=== PATIENT | male | born 1955 | race American Indian/Alaskan Native ===

== ENCOUNTER 2020-09-22 13:25 | Emergency (ER) | payer SELFPAY ==
--- NOTE | 2020-09-22 14:48 | XRay Report ---
CHEST 2 VIEWS INDICATION / CLINICAL INFORMATION: Chest Pain. COMPARISON: None available. FINDINGS: SUPPORT DEVICES: None. HEART / MEDIASTINUM: No significant abnormality. LUNGS / PLEURA: No significant pulmonary or pleural abnormality. No pneumothorax. ADDITIONAL FINDINGS: No significant additional findings. IMPRESSION: No acute cardiopulmonary abnormality. Signer Name: Vipul Gregorio MD Signed: 09/22/2020 2:44 PM Workstation Name: [id number]
[2020-09-22 15:26] LABS: Basophils % (Auto) 0.4 % (0.0-1.8); Eosinophils % (Auto) 0.3 % (0.0-4.3); Hematocrit 44.5 % (35.5-45.6); Lymphocytes # (Auto) 1.2 K/mm3 (1.2-5.4); Lymphocytes % (Auto) 18.1 % (13.4-35.0); Mean Corpuscular HGB Conc 34 % (32-34); Mean Corpuscular Volume 92 fl (84-94); Monocytes # (Auto) 0.5 K/mm3 (0.0-0.8); Monocytes % (Auto) 8.2 % (0.0-7.3); Platelet Count 261 K/mm3 (140-440); Red Blood Count 4.85 M/mm3 (3.65-5.03); Red Cell Distribution Width 13.2 % (13.2-15.2)
[2020-09-22 15:48] LABS: Alanine Aminotransferase 11 units/L (7-56); BUN/Creatinine Ratio 16; Blood Urea Nitrogen 14 mg/dL (9-20); Calcium 9.2 mg/dL (8.4-10.2); Hemolysis Index 26
--- NOTE | 2020-09-22 16:42 | Emergency Department Report ---
HPI - General Chief Complaint: Chest Pain Time Seen by Provider: 09/22/20 16:28 - HPI HPI: Room 44 The patient is a 65-year-old male present with a chief complaint of chest pain. The patient states he was getting up to go to the bathroom developed with left- sided chest pain associated with slight diaphoresis. Patient denies shortness of breath or nausea/vomiting. The patient states the pain was severe enough to cause him to fall to the floor but he denies loss of consciousness. Patient states the pain lasted for approximately 1 hour. Patient states he is never had a stress test or cardiac catheterization ED Past Medical Hx - Past Medical History Previous Medical History?: No - Surgical History Past Surgical History?: No - Family History Family history: no significant - Social History Smoking Status: Light Tobacco Smoker (Chews tobacco) Substance Use Type: None ED Review of Systems ROS: Stated complaint: POSS HEART ATTACK Other details as noted in HPI Constitutional: diaphoresis Eyes: denies: eye pain ENT: denies: throat pain Respiratory: denies: shortness of breath Cardiovascular: chest pain Endocrine: no symptoms reported Gastrointestinal: denies: nausea, vomiting Genitourinary: denies: dysuria Musculoskeletal: denies: back pain Neurological: denies: headache Physical Exam - Physical Exam Vital Signs: Vital Signs 09/22/20 14:38 Temperature 98 F Pulse Rate 86 Respiratory 16 Rate Blood Pressure 128/76 [Right] O2 Sat by Pulse 97 Oximetry Physical Exam: GENERAL: The patient is well-developed well-nourished male sitting on stretcher not appearing to be in acute distress. [] HEENT: Normocephalic. Atraumatic. Extraocular motions are intact. Patient has moist mucous membranes. NECK: Supple. Trachea midline CHEST/LUNGS: Clear to auscultation. There is no respiratory distress noted. HEART/CARDIOVASCULAR: Regular. There is no tachycardia. There is no gallop rub or murmur. ABDOMEN: Abdomen is soft, nontender. Patient has normal bowel sounds. There is no abdominal distention. SKIN: There is no rash. There is no edema. There is no diaphoresis. NEURO: The patient is awake, alert, and oriented. The patient is cooperative. The patient has normal speech MUSCULOSKELETAL: There is no evidence of acute injury. ED Course Vital Signs 09/22/20 14:38 Temperature 98 F Pulse Rate 86 Respiratory 16 Rate Blood Pressure 128/76 [Right] O2 Sat by Pulse 97 Oximetry ED Medical Decision Making - Lab Data Result diagrams: 09/22/20 15:05 09/22/20 15:05 - EKG Data -: EKG Interpreted by Me EKG shows normal: sinus rhythm Rate: normal - EKG Data When compared to previous EKG there are: previous EKG unavailable Interpretation: nonspecific ST-T wave aislinn (T wave inversions inferiorly) - Radiology Data Radiology results: report reviewed (Chest x-ray), image reviewed (Chest x-ray) interpreted by me: Chest x-ray-no focal infiltrates, no pneumothorax, no foreign body seen CHEST 2 VIEWS INDICATION / CLINICAL INFORMATION: Chest Pain. COMPARISON: None available. FINDINGS: SUPPORT DEVICES: None. HEART / MEDIASTINUM: No significant abnormality. LUNGS / PLEURA: No significant pulmonary or pleural abnormality. No pneumothorax. ADDITIONAL FINDINGS: No significant additional findings. IMPRESSION: No acute cardiopulmonary abnormality. Signer Name: Vipul Gregorio MD Signed: 09/22/2020 1:44 PM Workstation Name: [id number] - Differential Diagnosis ACS, pericarditis, GERD Critical care attestation.: If time is entered above; I have spent that time in minutes in the direct care of this critically ill patient, excluding procedure time. ED Disposition Clinical Impression: Chest pain Disposition: -09 OP ADMIT IP TO THIS HOSP Is pt being admited?: Yes Does the pt Need Aspirin: Yes Condition: Fair Instructions: Chest Pain (ED) Time of Disposition: 16:46 (Hospitalist paged (Dr. Fuller)) HEART Score - HEART Score History: Moderately suspicious EKG: Non-specific Age: > 65 Risk factors: No known risk factors Troponin: Troponin T < 0.010 ng/mL (0.00-0.029) 09/22/20 15:05 Troponin: < normal limit HEART Score: 4
[2020-09-22] MEDS ORDERED: ASPIRIN 325 MG TAB PO ONE (16:46)
[2020-09-22 19:13] VITALS: BP 166/99
== END 2020-09-22 21:20 | disposition admitted as inpatient to this hospital (09) ==
LOC: EEVIPCON 13:25 → ED 13:25
DX: R07.89 Other chest pain (principal); F17.200 Nicotine dependence, unspecified, uncomplicated; Z79.899 Other long term (current) drug therapy
CPT/HCPCS: 36415; 71046; 80053; 83880; 84484; 85025; 85379; 93005

== ENCOUNTER 2020-11-22 20:05 | Observation (INO) | payer MEDICARE ==
--- NOTE | 2020-11-22 20:11 | Emergency Department Report ---
ED General Adult HPI - General Chief complaint: Syncope Stated complaint: im fine PUI?: No Time Seen by Provider: 11/22/20 20:09 Source: patient, police, EMS ( EMS documentation not available at time of chart dictation ), RN notes reviewed, old records reviewed Mode of arrival: Stretcher Limitations: Altered Mental Status - History of Present Illness Initial comments: The patient was evaluated in the emergency department for symptoms described in the history of present illness. He/she was evaluated in the context of the [facility] COVID-19 pandemic, which necessitated consideration that the patient might be at risk for infection with the virus that causes COVID-19. Institutional protocols and algorithms that pertain to the evaluation of patients at risk for COVID-19 are in a state of rapid change based on information released by regulatory bodies including the CDC and federal and state organizations. These policies and algorithms were followed during the patient's care in the emergency department. Please note that these policies, procedures and recommendations changed on a rapid basis. The patient is a 65-year-old gentleman. He is currently incarcerated. He is brought to the hospital today by emergency medical services. As per verbal report from EMS, patient was at longterm, and was reportedly unresponsive and had an episode of syncope. The patient himself does not recall this. He denies physical pain. He states he does not take any medications. 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 He denies headache, neck pain, chest pain, abdominal pain, shortness of breath. He is very hard of hearing, and has poor eyesight, he is not sure if he is having bright red blood per rectum or hematemesis. He d enies loss of taste and smell. He has never had this happen to him before. He is not currently accompanied by friends or family at this time who can provide collateral information. When the reported event took place, he was apparently in his cell with his roommate. His roommate is not present for me to interview. -: Sudden Consistency: now resolved Improves with: none Worsens with: none - Related Data Previous Rx's Medication Instructions Recorded Last Taken Type LORazepam [Ativan] 0.5 mg PO QHS #24 tab 09/22/20 Unknown Rx Pantoprazole [Protonix] 40 mg PO QDAY #30 tablet 09/22/20 Unknown Rx Allergies Allergy/AdvReac Type Severity Reaction Status Date / Time No Known Allergies Allergy Unverified 09/22/20 14:10 ED Review of Systems ROS: Stated complaint: SYNCOPAL EPISODE Other details as noted in HPI Constitutional: denies: fever Eyes: other (Patient is blind). denies: eye discharge ENT: other (Denies loss of taste and smell) Cardiovascular: syncope Gastrointestinal: denies: abdominal pain, vomiting, diarrhea, constipation Genitourinary: denies: dysuria Musculoskeletal: denies: myalgia Neurological: confusion. denies: headache Hematological/Lymphatic: denies: easy bleeding ED Past Medical Hx - Past Medical History Previous Medical History?: No - Surgical History Past Surgical History?: No - Social History Smoking Status: Never Smoker Substance Use Type: None - Medications Home Medications: Home Medications Medication Instructions Recorded Confirmed Last Taken Type LORazepam [Ativan] 0.5 mg PO QHS #24 tab 09/22/20 Unknown Rx Pantoprazole [Protonix] 40 mg PO QDAY #30 tablet 09/22/20 Unknown Rx ED Physical Exam - General Limitations: Other (Patient is a poor historian) General appearance: in no apparent distress - Head Head exam: Present: atraumatic, normocephalic - Eye Eye exam: Present: EOMI, other (Opacification of bilateral corneas appreciated). Absent: nystagmus - ENT ENT exam: Present: normal exam, normal orophraynx, mucous membranes moist, normal external ear exam - Neck Neck exam: Present: normal inspection, full ROM. Absent: tenderness, meningismus - Respiratory Respiratory exam: Present: normal lung sounds bilaterally. Absent: respiratory distress, wheezes, rales, rhonchi, stridor, decreased breath sounds - Cardiovascular Cardiovascular Exam: Present: regular rate, normal rhythm, normal heart sounds. Absent: bradycardia, tachycardia, irregular rhythm, systolic murmur, diastolic murmur, rubs, gallop - GI/Abdominal GI/Abdominal exam: Present: soft. Absent: distended, tenderness, guarding, rebo und, rigid, pulsatile mass - Rectal Rectal exam: Present: deferred - Extremities Exam Extremities exam: Present: normal inspection, full ROM, other (2+ pulses noted in the bilateral upper and lower extremities. There is no palpable cord. negative Homans sign. Muscular compartments are soft. The pelvis is stable.). Absent: pedal edema, calf tenderness - Back Exam Back exam: Present: normal inspection, full ROM. Absent: tenderness, CVA tenderness (R), CVA tenderness (L), paraspinal tenderness, vertebral tenderness - Neurological Exam Neurological exam: Present: alert (The patient is awake. He follows commands.), other (No facial droop. Tongue midline. Extraocular movements intact bilaterally. Facial sensation intact to light touch in V1, V2, V3 distribution bilaterally. 5 and a 5 strength in 4 extremities. Sensation intact to light touch in 4 extremities.) - Psychiatric Psychiatric exam: Present: flat affect - Skin Skin exam: Present: warm, dry, intact, normal color. Absent: rash ED Course Vital Signs 11/22/20 20:18 Temperature 97.9 F Pulse Rate 81 Respiratory 15 Rate Blood Pressure 154/90 [right arm] O2 Sat by Pulse 97 Oximetry - Reevaluation(s) Reevaluation #1: 11/22/20 22:[address] scan of the brain and cervical spine negative for acute findings. Laboratory studies suggest hypothyroidism, hyperglycemia, and lactic acidosis. I suspect a type II lactic acidosis, likely secondary to undiagnosed/poorly managed diabetes, dehydration. I do not suspect invasive bacterial illness at this time, will therefore not initiate antibiotic therapy. Patient resting comfortably in stretcher at this time, in no acute distress. Fluids, aspirin, Synthroid, insulin ordered. We will discuss with internal medicine to arrange admission. Reevaluation #2: 11/22/20 22:44 Dr Ruvalcaba to accept to [facility]. ED Medical Decision Making - Lab Data Result diagrams: 11/22/20 20:34 11/22/20 20:18 Vital Signs 11/22/20 20:18 Temperature 97.9 F Pulse Rate 81 Respiratory 15 Rate Blood Pressure 154/90 [right arm] O2 Sat by Pulse 97 Oximetry Lab Results 11/22/20 11/22/20 11/22/20 Range/Units 20:18 20:18 20:34 WBC 7.7 (4.5-11.0) K/mm3 RBC 4.67 (3.65-5.03) M/mm3 Hgb 14.2 (11.8-15.2) gm/dl Hct 41.5 (35.5-45.6) % MCV 89 (84-94) fl MCH 31 (28-32) pg MCHC 34 (32-34) % RDW 13.3 (13.2-15.2) % Plt Count 258 (140-440) K/mm3 Lymph % (Auto) 13.5 (13.4-35.0) % [place] % (Auto) 9.1 H (0.0-7.3) % Eos % (Auto) 0.3 (0.0-4.3) % Baso % (Auto) 0.6 (0.0-1.8) % Lymph # (Auto) 1.0 L (1.2-5.4) K/mm3 [place] # (Auto) 0.7 (0.0-0.8) K/mm3 Eos # (Auto) 0.0 (0.0-0.4) K/mm3 Baso # (Auto) 0.0 (0.0-0.1) K/mm3 Seg Neutrophils % 76.5 H (40.0-70.0) % Seg Neutrophils # 5.9 (1.8-7.7) K/mm3 PT (12.2-14.9) Sec. INR (0.87-1.13) D-Dimer (0-234) ng/mlDDU Sodium 137 (137-145) mmol/L Potassium 3.9 (3.6-5.0) mmol/L Chloride 98.6 (98-107) mmol/L Carbon Dioxide 32 H (22-30) mmol/L Anion Gap 10 mmol/L BUN 14 (9-20) mg/dL Creatinine 1.1 (0.8-1.3) mg/dL Estimated GFR > 60 ml/min BUN/Creatinine Ratio 13 % Glucose 335 H (75-100) mg/dL Calcium 9.2 (8.4-10.2) mg/dL Magnesium 1.70 (1.7-2.3) mg/dL Total Bilirubin 0.30 (0.1-1.2) mg/dL AST 13 (5-40) units/L ALT 17 (7-56) units/L Alkaline Phosphatase 74 (35-129) units/L Total Creatine Kinase 178 H (55-170) units/L CK-MB (CK-2) 3.7 (0.0-4.0) ng/mL CK-MB (CK-2) Rel Index 2.0 (0-4) Troponin T < 0.010 (0.00-0.029) ng/mL Total Protein 6.9 (6.3-8.2) g/dL Albumin 3.7 L (3.9-5) g/dL Albumin/Globulin Ratio 1.2 % TSH 6.350 H (0.270-4.200) mlU/mL Salicylates (2.8-20.0) mg/dL Acetaminophen (10.0-30.0) ug/mL Plasma/Serum Alcohol (0-0.07) % 11/22/20 11/22/20 11/22/20 Range/Units 20:34 20:34 20:34 WBC (4.5-11.0) K/mm3 RBC (3.65-5.03) M/mm3 Hgb (11.8-15.2) gm/dl Hct (35.5-45.6) % MCV (84-94) fl MCH (28-32) pg MCHC (32-34) % RDW (13.2-15.2) % Plt Count (140-440) K/mm3 Lymph % (Auto) (13.4-35.0) % [place] % (Auto) (0.0-7.3) % Eos % (Auto) (0.0-4.3) % Baso % (Auto) (0.0-1.8) % Lymph # (Auto) (1.2-5.4) K/mm3 [place] # (Auto) (0.0-0.8) K/mm3 Eos # (Auto) (0.0-0.4) K/mm3 Baso # (Auto) (0.0-0.1) K/mm3 Seg Neutrophils % (40.0-70.0) % Seg Neutrophils # (1.8-7.7) K/mm3 PT 12.7 (12.2-14.9) Sec. INR 0.97 (0.87-1.13) D-Dimer 173.47 (0-234) ng/mlDDU Sodium (137-145) mmol/L Potassium (3.6-5.0) mmol/L Chloride (98-107) mmol/L Carbon Dioxide (22-30) mmol/L Anion Gap mmol/L BUN (9-20) mg/dL Creatinine (0.8-1.3) mg/dL Estimated GFR ml/min BUN/Creatinine Ratio % Glucose (75-100) mg/dL Calcium (8.4-10.2) mg/dL Magnesium (1.7-2.3) mg/dL Total Bilirubin (0.1-1.2) mg/dL AST (5-40) units/L ALT (7-56) units/L Alkaline Phosphatase (35-129) units/L Total Creatine Kinase (55-170) units/L CK-MB (CK-2) (0.0-4.0) ng/mL CK-MB (CK-2) Rel Index (0-4) Troponin T (0.00-0.029) ng/mL Total Protein (6.3-8.2) g/dL Albumin (3.9-5) g/dL Albumin/Globulin Ratio % TSH (0.270-4.200) mlU/mL Salicylates < 0.3 L (2.8-20.0) mg/dL Acetaminophen 5.0 L (10.0-30.0) ug/mL Plasma/Serum Alcohol (0-0.07) % 04// Range/Units 20:34 WBC (4.5-11.0) K/mm3 RBC (3.65-5.03) M/mm3 Hgb (11.8-15.2) gm/dl Hct (35.5-45.6) % MCV (84-94) fl MCH (28-32) pg MCHC (32-34) % RDW (13.2-15.2) % Plt Count (140-440) K/mm3 Lymph % (Auto) (13.4-35.0) % [place] % (Auto) (0.0-7.3) % Eos % (Auto) (0.0-4.3) % Baso % (Auto) (0.0-1.8) % Lymph # (Auto) (1.2-5.4) K/mm3 [place] # (Auto) (0.0-0.8) K/mm3 Eos # (Auto) (0.0-0.4) K/mm3 Baso # (Auto) (0.0-0.1) K/mm3 Seg Neutrophils % (40.0-70.0) % Seg Neutrophils # (1.8-7.7) K/mm3 PT (12.2-14.9) Sec. INR (0.87-1.13) D-Dimer (0-234) ng/mlDDU Sodium (137-145) mmol/L Potassium (3.6-5.0) mmol/L Chloride (98-107) mmol/L Carbon Dioxide (22-30) mmol/L Anion Gap mmol/L BUN (9-20) mg/dL Creatinine (0.8-1.3) mg/dL Estimated GFR ml/min BUN/Creatinine Ratio % Glucose (75-100) mg/dL Calcium (8.4-10.2) mg/dL Magnesium (1.7-2.3) mg/dL Total Bilirubin (0.1-1.2) mg/dL AST (5-40) units/L ALT (7-56) units/L Alkaline Phosphatase (35-129) units/L Total Creatine Kinase (55-170) units/L CK-MB (CK-2) (0.0-4.0) ng/mL CK-MB (CK-2) Rel Index (0-4) Troponin T (0.00-0.029) ng/mL Total Protein (6.3-8.2) g/dL Albumin (3.9-5) g/dL Albumin/Globulin Ratio % TSH (0.270-4.200) mlU/mL Salicylates (2.8-20.0) mg/dL Acetaminophen (10.0-30.0) ug/mL Plasma/Serum Alcohol < 0.01 (0-0.07) % - EKG Data -: EKG Interpreted by Mo EKG shows normal: sinus rhythm Rate: normal - EKG Data 11/22/20 21:51 EKG is interpreted at 21: 30 Sinus rhythm, 71 bpm. Left axis deviation. Left anterior fascicular block. Left ventricular hypertrophy. Motion artifact. QTc within normal limits. Abnormal EKG. Not a STEMI. Unchanged from prior EKG from September 22, 2020 - Radiology Data Radiology results: pending, report reviewed, image reviewed [facility] [address] [place] [address] Cat Scan Report Signed Patient: JUSTUS STEPHENS MR#: [id number] 496 : 1955 Acct:[id number] Age/Sex: 65 / M ADM Date: 11/22/20 Loc: ED Attending Dr: Ordering Physician: KEVIN LAWTON MD Date of Service: 11/22/20 Procedure(s): CT head/brain wo con Accession Number(s): [id number] cc: KEVIN LAWTON MD CT head/brain wo con INDICATION / CLINICAL INFORMATION: Syncope. TECHNIQUE: All CT scans at this location are performed using CT dose reduction for ALARA by means of automated exposure control. COMPARISON: None available. FINDINGS: Mild changes of atrophy are present. Ventricle size is normal. No mass or mass effect is seen. There is no evidence of intracranial hemorrhage. No obvious area of infarction is identified. Visualized paranasal sinuses are clear. IMPRESSION: Mild changes of atrophy. No acute findings Signer Name: Joaquin Gregorio MD FACR Signed: 11/22/2020 10:26 PM Workstation Name: [id number] Transcribed By: MS Dictated By: Joaquin Gregorio MD Electronically Authenticated By: Joaquin Gregorio MD Signed Date/Time: 11/22/202225 DD/ 24 [facility] [address] [place] [address] Cat Scan Report Signed Patient: JUSTUS STEPHENS MR#: [id number] 496 : 1955 Acct:[id number] Age/Sex: 65 / M ADM Date: 11/22/20 Loc: ED Attending Dr: Ordering Physician: KEVIN LAWTON MD Date of Service: 11/22/20 Procedure(s): CT cervical spine wo con Accession Number(s): [id number] cc: KEVIN LAWTON MD CT cervical spine wo con INDICATION / CLINICAL INFORMATION: Syncope. TECHNIQUE: All CT scans at this location are performed using CT dose reduction for ALARA by means of automated exposure control. COMPARISON: None available. FINDINGS: The prevertebral soft tissues are normal in thickness. Mild diffuse degenerative changes present. No fracture is identified. Spinal alignment is normal. Paraspinous soft tissues are unremarkable in appearance. IMPRESSION: Negative CT of the cervical spine Signer Name: Joaquin Gregorio MD FACR Signed: 11/22/2020 10:27 PM Workstation Name: [id number] Transcribed By: MS Dictated By: Joaquin Gregorio MD Electronically Authenticated By: Joaquin Gregorio MD Signed Date/Time: 11/22/202226 DD/ 25 [facility] [address] [place] [address] XRay Report Signed Patient: JUSTUS STEPHENS MR#: [id number] 496 : 1955 Acct:[id number] Age/Sex: 65 / M ADM Date: 11/22/20 Loc: ED Attending Dr: Ordering Physician: KEVIN LAWTON MD Date of Service: 11/22/20 Procedure(s): XR chest 1V ap Accession Number(s): [id number] cc: KEVIN LAWTON MD Fluoro Time In Minutes: CHEST 1 VIEW INDICATION / CLINICAL INFORMATION: Syncope. COMPARISON: 09/22/2020 FINDINGS: SUPPORT DEVICES: None. HEART / MEDIASTINUM: No significant abnormality. LUNGS / PLEURA: Nodule in the right lower lung most likely represents a nipple shadow and is unchanged No pneumothorax. ADDITIONAL FINDINGS: No significant additional findings. IMPRESSION: Nodule in the right lower lung most likely represents a nipple shadow and is unchanged from prior examination dated 09/22/2020. No definite acute disease or interval change. Signer Name: Joaquin Gregorio MD FACR Signed: 11/22/2020 8:58 PM Workstation Name: [id number] Transcribed By: MS Dictated By: Joaquin Gregorio MD Electronically Authenticated By: Joaquin Gregorio MD Signed Date/Time: 03/07 DD/ 56 - Medical Decision Making Differential diagnosis, including but not limited to: Orthostasis, vagal event, structural cardiac disease, arrhythmia, pulmonary embolism, intracranial injury, cervical spine injury Assessment and plan: 65-year-old gentleman, who presents to the hospital with EMS with episode of syncope/loss of consciousness, now resolved. The patient is awake to name, follows commands, and in no acute distress. He is not currently tachycardic, tachypneic or hypoxic, he denies DVT and pulmonary embolism risk fa ctors, and his D-dimer is negative. His EKG is abnormal but unchanged from prior. However, he has evidence of hypertension, and hyperglycemia, and is likely an undiagnosed hypertensive and diabetic patient. In addition, patient found to be at moderate risk for adverse event as per the Lithuanian syncope rule: 1 points [place]ian Syncope Risk Score Medium risk 3.1% risk of 30-day serious adverse event (, arrhythmia, ME full list in Evidence) We will obtain CT scan of the brain and cervical spine. He will be given aspirin. We will admit this patient to the medical service once initial diagnostics have resulted. He will also be given insulin for his hyperglycemia. Critical care attestation.: If time is entered above; I have spent that time in minutes in the direct care of this critically ill patient, excluding procedure time. ED Disposition Clinical Impression: Hyperglycemia, Abnormal EKG, History of syncope, Blind, Hypothyroidism, Lactic acidosis Disposition: OP ADMIT IP TO THIS HOSP Is pt being admited?: Yes Does the pt Need Aspirin: No Condition: Good Referrals: PRIMARY CARE, [Primary Care Provider] - 3-5 Days
[2020-11-22] MEDS ORDERED: SODIUM CHLORIDE 0.9% 500 ML 500 ML IV ONE (20:17)
[2020-11-22 21:01] LABS: Basophils % (Auto) 0.6 % (0.0-1.8); Eosinophils % (Auto) 0.3 % (0.0-4.3); Hematocrit 41.5 % (35.5-45.6); Hemoglobin 14.2 gm/dl (11.8-15.2); Lymphocytes % (Auto) 13.5 % (13.4-35.0); Mean Corpuscular HGB Conc 34 % (32-34); Mean Corpuscular Volume 89 fl (84-94); Monocytes # (Auto) 0.7 K/mm3 (0.0-0.8); Monocytes % (Auto) 9.1 % (0.0-7.3); Platelet Count 258 K/mm3 (140-440); Red Blood Count 4.67 M/mm3 (3.65-5.03); Red Cell Distribution Width 13.3 % (13.2-15.2)
--- NOTE | 2020-11-22 21:03 | XRay Report ---
CHEST 1 VIEW INDICATION / CLINICAL INFORMATION: Syncope. COMPARISON: 09/22/2020 FINDINGS: SUPPORT DEVICES: None. HEART / MEDIASTINUM: No significant abnormality. LUNGS / PLEURA: Nodule in the right lower lung most likely represents a nipple shadow and is unchange d No pneumothorax. ADDITIONAL FINDINGS: No significant additional findings. IMPRESSION: Nodule in the right lower lung most likely represents a nipple shadow and is unchanged from prior exa mination dated 09/22/2020. No definite acute disease or interval change. Signer Name: Joaquin Gregorio MD FACR Signed: 11/22/2020 8:58 PM Workstation Name: [id number]
[2020-11-22 21:12] LABS: INR 0.97 (0.87-1.13)
[2020-11-22 21:38] LABS: Creatine Kinase MB 3.7 ng/mL (0.0-4.0)
[2020-11-22 21:41] LABS: Alanine Aminotransferase 17 units/L (7-56); Albumin 3.7 g/dL (3.9-5); BUN/Creatinine Ratio 13; Blood Urea Nitrogen 14 mg/dL (9-20); Calcium 9.2 mg/dL (8.4-10.2); Hemolysis Index 3
[2020-11-22] MEDS ORDERED: INSULIN REGULAR, HUMAN 100 UNITS/1 ML IV ONE (21:51)
[2020-11-22] MEDS ORDERED: SODIUM CHLORIDE 0.9% 1000 ML 2,000 ML IV ONE (21:57)
[2020-11-22] MEDS ORDERED: LEVOTHYROXINE 75 MCG TAB PO ONE (22:15)
[2020-11-22 22:16] LABS: Bacteria,Urine 1+ /HPF (Negative); Bilirubin,Urine NEG (Negative); Blood,Urine NEG (Negative); Color,Urine Yellow (Yellow); Mucus,Urine FEW /HPF; Protein,Urine <15 mg/dL mg/dL (Negative); Urobilinogen,Urine < 2.0 mg/dL (<2.0); WBC,Urine < 1.0 /HPF (0.0-6.0)
[2020-11-22 22:22] LABS: Amphetamine Screen,Urine Negative; Benzodiazepines Screen,Urine Negative; Cannabinoid Screen,Urine Negative; Cocaine Screen,Urine Negative; Methadone Screen,Urine Negative; Opiate Screen,Urine Negative
--- NOTE | 2020-11-22 22:30 | Cat Scan Report ---
CT head/brain wo con INDICATION / CLINICAL INFORMATION: Syncope. TECHNIQUE: All CT scans at this location are performed using CT dose reduction for ALARA by means of automated e xposure control. COMPARISON: None available. FINDINGS: Mild changes of atrophy are present. Ventricle size is normal. No mass or mass effect is seen. There is no evidence of intracranial hemorrhage. No obvious area of infarction is identified. Visualized pa ranasal sinuses are clear. IMPRESSION: Mild changes of atrophy. No acute findings Signer Name: Joaquin Gregorio MD FACR Signed: 11/22/2020 10:26 PM Workstation Name: [id number]
--- NOTE | 2020-11-22 22:31 | Cat Scan Report ---
CT cervical spine wo con INDICATION / CLINICAL INFORMATION: Syncope. TECHNIQUE: All CT scans at this location are performed using CT dose reduction for ALARA by means of automated e xposure control. COMPARISON: None available. FINDINGS: The prevertebral soft tissues are normal in thickness. Mild diffuse degenerative changes present. No fracture is identified. Spinal alignment is normal. Paraspinous soft tissues are unremarkable in appe arance. IMPRESSION: Negative CT of the cervical spine Signer Name: Joaquin Gregorio MD FACR Signed: 11/22/2020 10:27 PM Workstation Name: [id number]
[2020-11-22] MEDS ORDERED: ASPIRIN 81 MG TAB CHEW PO ONE (22:44)
[2020-11-22] MEDS ORDERED: traMADol 50 MG TAB PO PRN (23:14)
[2020-11-22] MEDS ORDERED: ACETAMINOPHEN 325 MG TAB PO PRN (23:14)
[2020-11-22] MEDS ORDERED: DEXTROSE 50% IN WATER (25GM) 50 ML SYRINGE IV PRN (23:15)
[2020-11-22] MEDS ORDERED: SODIUM CHLORIDE 0.9% 1000 ML 1,000 ML IV SCH ×2 (23:15→23:30)
[2020-11-22] MEDS ORDERED: hydrALAZINE 20 MG/1 ML INJ IV PRN (23:17)
--- NOTE | 2020-11-22 23:22 | History and Physical Report ---
History of Present Illness Date of examination: 11/22/20 Date of admission: 11/22/2020 Chief complaint: Syncope Hyperglycemia History of present illness: 65-year-old black male was brought to the emergency room from [facility] because of an episode of syncope. Patient is blind and hard of hearing. He denies headache, neck pain, chest pain, abdominal pain, shortness of breath. He is very hard of hearing, and has poor eyesight, patient is a poor historian In the emergency room patient is found to have syncope. Patient blood glucose is 335 lactic acid 4.0 TSH 6.350 Past History Past Medical History: diabetes, hypothyroidism Medications and Allergies Allergies Allergy/AdvReac Type Severity Reaction Status Date / Time No Known Allergies Allergy Unverified 09/22/20 14:10 Home Medications Medication Instructions Recorded Confirmed Last Taken Type LORazepam [Ativan] 0.5 mg PO QHS #24 tab 09/22/20 Unknown Rx Pantoprazole [Protonix] 40 mg PO QDAY #30 tablet 09/22/20 Unknown Rx Active Meds: Active Medications Acetaminophen (Acetaminophen 325 Mg Tab) 650 mg PO Q6H PRN PRN Reason: Pain, Mild (1-3) Aspirin (Aspirin Ec 325 Mg Tab) 325 mg PO QDAY [facility] Atorvastatin Calcium (Atorvastatin 40 Mg Tab) 40 mg PO QHS [facility] Dextrose (Dextrose 50% In Water (25gm) 50 Ml Syringe) 50 ml IV Q30MIN PRN; Protocol PRN Reason: Hypoglycemia Sodium Chloride (Nacl 0.9% 1000 Ml) 1,000 mls @ 100 mls/hr IV DIRECT [facility] Insulin Human Lispro (Insulin Lispro 100 Unit/Ml) 0 unit SUB-Q ACHS [facility]; Protocol Lorazepam (Lorazepam 0.5 Mg Tab) 0.5 mg PO QHS [facility] Pantoprazole Sodium (Pantoprazole 40 Mg Tab) 40 mg PO QDAY [facility] Pantoprazole Sodium (Pantoprazole 40 Mg Tab) 40 mg PO QDAY [facility] Sodium Chloride (Sodium Chloride 0.9% 10 Ml Flush Syringe) 10 ml IV PRN PRN PRN Reason: LINE FLUSH Tramadol HCl (Tramadol 50 Mg Tab) 50 mg PO Q6H PRN PRN Reason: Pain, Moderate (4-6) Review of Systems Cardiovascular: syncope Exam - Constitutional Vitals: Temp Pulse Resp BP Pulse Ox 97.9 F 81 15 154/90 97 11/22/20 20:18 11/22/20 20:18 11/22/20 20:18 11/22/20 20:18 11/22/20 20:18 General appearance: Present: no acute distress, well-nourished - EENT Eyes: Present: PERRL ENT: hearing intact, clear oral mucosa - Neck Neck: Present: supple, normal ROM - Respiratory Respiratory effort: normal Respiratory: bilateral: diminished - Cardiovascular Heart Sounds: Present: S1 & S2. Absent: rub, click - Extremities Extremities: pulses symmetrical, No edema Peripheral Pulses: within normal limits - Abdominal General gastrointestinal: Present: soft, non-tender, non-distended, normal bowel sounds Male genitourinary: Present: normal - Integumentary Integumentary: Present: clear, warm, dry - Musculoskeletal Musculoskeletal: gait normal, strength equal bilaterally - Psychiatric Psychiatric: appropriate mood/affect, intact judgment & insight - Neurologic Neurologic: CNII-XII intact, moves all extremities HEART Score - HEART Score Troponin: Troponin T < 0.010 ng/mL (0.00-0.029) 11/22/20 20:18 Results - Labs CBC & Chem 7: 11/22/20 20:34 11/22/20 20:18 Labs: Laboratory Last Values WBC 7.7 K/mm3 (4.5-11.0) 11/22/20 20:34 RBC 4.67 M/mm3 (3.65-5.03) 11/22/20 20:34 Hgb 14.2 gm/dl (11.8-15.2) 11/22/20 20:34 Hct 41.5 % (35.5-45.6) 11/22/20 20:34 MCV 89 fl (84-94) 11/22/20 20:34 MCH 31 pg (28-32) 11/22/20 20:34 MCHC 34 % (32-34) 11/22/20 20:34 RDW 13.3 % (13.2-15.2) 11/22/20 20:34 Plt Count 258 K/mm3 (140-440) 11/22/20 20:34 Lymph % (Auto) 13.5 % (13.4-35.0) 11/22/20 20:34 [place] % (Auto) 9.1 % (0.0-7.3) H 11/22/20 20:34 Eos % (Auto) 0.3 % (0.0-4.3) 11/22/20 20:34 Baso % (Auto) 0.6 % (0.0-1.8) 11/22/20 20:34 Lymph # (Auto) 1.0 K/mm3 (1.2-5.4) L 11/22/20 20:34 [place] # (Auto) 0.7 K/mm3 (0.0-0.8) 11/22/20 20:34 Eos # (Auto) 0.0 K/mm3 (0.0-0.4) 11/22/20 20:34 Baso # (Auto) 0.0 K/mm3 (0.0-0.1) 11/22/20 20:34 Seg Neutrophils % 76.5 % (40.0-70.0) H 11/22/20 20:34 Seg Neutrophils # 5.9 K/mm3 (1.8-7.7) 11/22/20 20:34 PT 12.7 Sec. (12.2-14.9) 11/22/20 20:34 INR 0.97 (0.87-1.13) 11/22/20 20:34 D-Dimer 173.47 ng/mlDDU (0-234) 11/22/20 20:34 Sodium 137 mmol/L (137-145) 11/22/20 20:18 Potassium 3.9 mmol/L (3.6-5.0) 11/22/20 20:18 Chloride 98.6 mmol/L (98-107) 11/22/20 20:18 Carbon Dioxide 32 mmol/L (22-30) H 11/22/20 20:18 Anion Gap 10 mmol/L 11/22/20 20:18 BUN 14 mg/dL (9-20) 11/22/20 20:18 Creatinine 1.1 mg/dL (0.8-1.3) 11/22/20 20:18 Estimated GFR > 60 ml/min 11/22/20 20:18 BUN/Creatinine Ratio 13 % 11/22/20 20:18 Glucose 335 mg/dL (75-100) H 11/22/20 20:18 Lactic Acid 4.00 mmol/L (0.7-2.0) H* 11/22/20 20:34 Calcium 9.2 mg/dL (8.4-10.2) 11/22/20 20:18 Magnesium 1.70 mg/dL (1.7-2.3) 11/22/20 20:18 Total Bilirubin 0.30 mg/dL (0.1-1.2) 11/22/20 20:18 AST 13 units/L (5-40) 11/22/20 20:18 ALT 17 units/L (7-56) 11/22/20 20:18 Alkaline Phosphatase 74 units/L (35-129) 11/22/20 20:18 Ammonia 16.0 umol/L (25-60) L 11/22/20 20:34 Total Creatine Kinase 178 units/L (55-170) H 11/22/20 20:18 CK-MB (CK-2) 3.7 ng/mL (0.0-4.0) 11/22/20 20:18 CK-MB (CK-2) Rel Index 2.0 (0-4) 11/22/20 20:18 Troponin T < 0.010 ng/mL (0.00-0.029) 11/22/20 20:18 Total Protein 6.9 g/dL (6.3-8.2) 11/22/20 20:18 Albumin 3.7 g/dL (3.9-5) L 11/22/20 20:18 Albumin/Globulin Ratio 1.2 % 11/22/20 20:18 TSH 6.350 mlU/mL (0.270-4.200) H 11/22/20 20:18 Urine Color Yellow (Yellow) 11/22/20 22:03 Urine Turbidity Clear (Clear) 11/22/20 22:03 Urine pH 5.0 (5.0-7.0) 11/22/20 22:03 Ur Specific [place] 1.025 (1.003-1.030) 11/22/20 22:03 Urine Protein <15 mg/dl mg/dL (Negative) 11/22/20 22:03 Urine Glucose (UA) >=500 mg/dL (Negative) 11/22/20 22:03 Urine Ketones Neg mg/dL (Negative) 11/22/20 22:03 Urine Blood Neg (Negative) 11/22/20 22:03 Urine Nitrite Neg (Negative) 11/22/20 22:03 Urine Bilirubin Neg (Negative) 11/22/20 22:03 Urine Urobilinogen < 2.0 mg/dL (<2.0) 11/22/20 22:03 Ur Leukocyte Esterase Neg (Negative) 11/22/20 22:03 Urine WBC (Auto) < 1.0 /HPF (0.0-6.0) 11/22/20 22:03 Urine RBC (Auto) 1.0 /HPF (0.0-6.0) 11/22/20 22:03 Urine Bacteria (Auto) 1+ /HPF (Negative) 11/22/20 22:03 Urine Mucus Few /HPF 11/22/20 22:03 Salicylates < 0.3 mg/dL (2.8-20.0) L 11/22/20 20:34 Urine Opiates Screen Negative 11/22/20 22:03 Urine Methadone Screen Negative 11/22/20 22:03 Acetaminophen 5.0 ug/mL (10.0-30.0) L 11/22/20 20:34 Ur Barbiturates Screen Negative 11/22/20 22:03 Ur Phencyclidine Scrn Negative 11/22/20 22:03 Ur Amphetamines Screen Negative 11/22/20 22:03 U Benzodiazepines Scrn Negative 11/22/20 22:03 Urine Cocaine Screen Negative 11/22/20 22:03 U Marijuana (THC) Screen Negative 11/22/20 22:03 Drugs of Abuse Note Disclamer 11/22/20 22:03 Plasma/Serum Alcohol < 0.01 % (0-0.07) 11/22/20 20:34 Blood Type O POSITIVE 11/22/20 20:34 Antibody Screen Negative 11/22/20 20:34 Assessment and Plan VTE prophylaxis?: Chemical Plan of care discussed with patient/family: Yes - Patient Problems (1) Syncope Current Visit: Yes Status: Acute Plan to address problem: Admit the patient to the cardiac telemetry. Normal saline at the rate of 100 cc/h. Aspirin 325 mg p.o. daily. Lipitor 40 mg p.o. daily. We will do the serial cardiac enzyme. We also do echocardiogram and carotid duplex. Consult cardiology if needed (2) Hypothyroidism Current Visit: Yes Status: Acute Plan to address problem: We will check the free T4. If needed we will put the patient on medication (3) Blind Current Visit: Yes Status: Acute Plan to address problem: Patient has poor eyesight. Outpatient follow-up with ophthalmology (4) Hyperglycemia Current Visit: Yes Status: Acute Plan to address problem: We will put the patient on diabetic diet. And insulin sliding scale. Recheck CBC BMP in the morning. We also consult for diabetic education (5) Lactic acidosis Current Visit: Yes Status: Acute Plan to address problem: Normal saline at the rate of 100 cc/h. Rocephin 2 g IV every 24 hours. We do the blood culture urine culture. Recheck lactic acid in 4 hours (6) DVT prophylaxis Current Visit: Yes Status: Acute Plan to address problem: Heparin 5000 units subcu every 8 hours for DVT prophylaxis. Protonix 40 mg p.o. daily for GI prophylaxis. Patient is a full code
[2020-11-23 00:21] LABS: Basophils # (Auto) 0.1 K/mm3 (0.0-0.1); Basophils % (Auto) 0.7 % (0.0-1.8); Eosinophils # (Auto) 0.1 K/mm3 (0.0-0.4); Eosinophils % (Auto) 0.7 % (0.0-4.3); Hematocrit 38.5 % (35.5-45.6); Hemoglobin 13.2 gm/dl (11.8-15.2); Lymphocytes % (Auto) 10.9 % (13.4-35.0); Mean Corpuscular HGB Conc 34 % (32-34); Mean Corpuscular Volume 89 fl (84-94); Monocytes # (Auto) 0.6 K/mm3 (0.0-0.8); Monocytes % (Auto) 6.4 % (0.0-7.3); Platelet Count 244 K/mm3 (140-440); Red Blood Count 4.31 M/mm3 (3.65-5.03); Red Cell Distribution Width 13.1 % (13.2-15.2)
[2020-11-23 01:29] LABS: BUN/Creatinine Ratio 13; Blood Urea Nitrogen 12 mg/dL (9-20); Calcium 8.6 mg/dL (8.4-10.2); Chol/HDL Ratio 4.36 %; HDL Cholesterol 36 mg/dL (40-59); Hemolysis Index 2; LDL Cholesterol,Direct 113 mg/dL (50-130)
[2020-11-23] MEDS: cefTRIAXone/NS 2 GM/100 ML 2 GM/100 ML BAG IV SCH ×2 (02:55→10:24)
[2020-11-23] MEDS: HEPARIN 5,000 UNIT/1 ML VIAL SUB-Q SCH ×4 (04:57→21:23)
--- NOTE | 2020-11-23 08:08 | Progress Note ---
Assessment and Plan Assessment and plan: (1) Syncope Current Visit: Yes Status: Acute Plan to address problem: Admit the patient to the cardiac telemetry. Normal saline at the rate of 100 cc/h. Aspirin 325 mg p.o. daily. Lipitor 40 mg p.o. daily. We will do the serial cardiac enzyme. We also do echocardiogram and carotid duplex. Consult cardiology if needed (2) Hypothyroidism Current Visit: Yes Status: Acute Plan to address problem: We will check the free T4. If needed we will put the patient on medication (3) Blind Current Visit: Yes Status: Acute Plan to address problem: Patient has poor eyesight. Outpatient follow-up with ophthalmology (4) Hyperglycemia Current Visit: Yes Status: Acute Plan to address problem: We will put the patient on diabetic diet. And insulin sliding scale. Recheck CBC BMP in the morning. We also consult for diabetic education (5) Lactic acidosis Current Visit: Yes Status: Acute Plan to address problem: Normal saline at the rate of 100 cc/h. Rocephin 2 g IV every 24 hours. We do the blood culture urine culture. Recheck lactic acid in 4 hours (6) DVT prophylaxis Current Visit: Yes Status: Acute Plan to address problem: Heparin 5000 units subcu every 8 hours for DVT prophylaxis. Protonix 40 mg p.o. daily for GI prophylaxis. Patient is a full code 11/23/2020 -Patient was seen and evaluated this morning, patient's dizziness is getting better. No syncopal episode after admission. Echo was done and unremarkable. Carotid Doppler is pending. Urinalysis including UDS is negative. I ordered orthostatic vitals but not done. History Interval history: Patient was seen and evaluated this morning Patient's dizziness is getting better No focal neurologic deficit Hospitalist Physical - Physical exam Narrative exam: Not in cardiopulmonary distress. The patient appeared well nourished and normally developed. Vital signs as documented. Head exam is unremarkable. No scleral icterus . Neck is without jugular venous distension, thyromegaly, or carotid bruits. Lungs are clear to auscultation. Cardiac exam reveals regular rate and Rhythm. Abdominal exam reveals normal bowel sounds, nontender, no organomegaly. Extremities are nonedematous and both femoral and pedal pulses are normal. 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 No focal weakness. - Constitutional Vitals: Temp Pulse Resp BP Pulse Ox 98.8 F 71 17 126/80 94 11/23/20 05:14 11/23/20 05:14 11/23/20 05:14 11/23/20 05:14 11/23/20 05:14 General appearance: Present: no acute distress, well-nourished HEART Score - HEART Score Troponin: Troponin T < 0.010 ng/mL (0.00-0.029) 11/23/20 07:22 Results - Labs CBC & Chem 7: 11/23/20 00:07 11/23/20 00:07 Labs: Laboratory Last Values WBC 8.7 K/mm3 (4.5-11.0) 11/23/20 00:07 RBC 4.31 M/mm3 (3.65-5.03) 11/23/20 00:07 Hgb 13.2 gm/dl (11.8-15.2) 11/23/20 00:07 Hct 38.5 % (35.5-45.6) 11/23/20 00:07 MCV 89 fl (84-94) 11/23/20 00:07 MCH 31 pg (28-32) 11/23/20 00:07 MCHC 34 % (32-34) 11/23/20 00:07 RDW 13.1 % (13.2-15.2) L 11/23/20 00:07 Plt Count 244 K/mm3 (140-440) 11/23/20 00:07 Lymph % (Auto) 10.9 % (13.4-35.0) L 11/23/20 00:07 [place] % (Auto) 6.4 % (0.0-7.3) 11/23/20 00:07 Eos % (Auto) 0.7 % (0.0-4.3) 11/23/20 00:07 Baso % (Auto) 0.7 % (0.0-1.8) 11/23/20 00:07 Lymph # (Auto) 1.0 K/mm3 (1.2-5.4) L 11/23/20 00:07 [place] # (Auto) 0.6 K/mm3 (0.0-0.8) 11/23/20 00:07 Eos # (Auto) 0.1 K/mm3 (0.0-0.4) 11/23/20 00:07 Baso # (Auto) 0.1 K/mm3 (0.0-0.1) 11/23/20 00:07 Seg Neutrophils % 81.3 % (40.0-70.0) H 11/23/20 00:07 Seg Neutrophils # 7.1 K/mm3 (1.8-7.7) 11/23/20 00:07 PT 12.7 Sec. (12.2-14.9) 11/22/20 20:34 INR 0.97 (0.87-1.13) 11/22/20 20:34 D-Dimer 173.47 ng/mlDDU (0-234) 11/22/20 20:34 Sodium 141 mmol/L (137-145) 11/23/20 00:07 Potassium 3.7 mmol/L (3.6-5.0) 11/23/20 00:07 Chloride 105.2 mmol/L (98-107) 11/23/20 00:07 Carbon Dioxide 26 mmol/L (22-30) 11/23/20 00:07 Anion Gap 14 mmol/L 11/23/20 00:07 BUN 12 mg/dL (9-20) 11/23/20 00:07 Creatinine 0.9 mg/dL (0.8-1.3) 11/23/20 00:07 Estimated GFR > 60 ml/min 11/23/20 00:07 BUN/Creatinine Ratio 13 % 11/23/20 00:07 Glucose 152 mg/dL (75-100) H 11/23/20 00:07 POC Glucose 135 mg/dL (70-105) H 11/23/20 00:34 Lactic Acid 0.80 mmol/L (0.7-2.0) 11/23/20 07:22 Calcium 8.6 mg/dL (8.4-10.2) 11/23/20 00:07 Magnesium 1.70 mg/dL (1.7-2.3) 11/22/20 20:18 Total Bilirubin 0.30 mg/dL (0.1-1.2) 11/22/20 20:18 AST 13 units/L (5-40) 11/22/20 20:18 ALT 17 units/L (7-56) 11/22/20 20:18 Alkaline Phosphatase 74 units/L (35-129) 11/22/20 20:18 Ammonia 16.0 umol/L (25-60) L 11/22/20 20:34 Total Creatine Kinase 178 units/L (55-170) H 11/22/20 20:18 CK-MB (CK-2) 3.7 ng/mL (0.0-4.0) 11/22/20 20:18 CK-MB (CK-2) Rel Index 2.0 (0-4) 11/22/20 20:18 Troponin T < 0.010 ng/mL (0.00-0.029) 11/23/20 07:22 Total Protein 6.9 g/dL (6.3-8.2) 11/22/20 20:18 Albumin 3.7 g/dL (3.9-5) L 11/22/20 20:18 Albumin/Globulin Ratio 1.2 % 11/22/20 20:18 Triglycerides 83 mg/dL (2-149) 11/23/20 00:07 Cholesterol 157 mg/dL (50-199) 11/23/20 00:07 LDL Cholesterol Direct 113 mg/dL (50-130) 11/23/20 00:07 HDL Cholesterol 36 mg/dL (40-59) L 11/23/20 00:07 Cholesterol/HDL Ratio 4.36 % 11/23/20 00:07 TSH 6.350 mlU/mL (0.270-4.200) H 11/22/20 20:18 Free T4 0.99 ng/dL (0.76-1.46) 11/23/20 00:07 Urine Color Yellow (Yellow) 11/22/20 22:03 Urine Turbidity Clear (Clear) 11/22/20 22:03 Urine pH 5.0 (5.0-7.0) 11/22/20 22:03 Ur Specific [place] 1.025 (1.003-1.030) 11/22/20 22:03 Urine Protein <15 mg/dl mg/dL (Negative) 11/22/20 22:03 Urine Glucose (UA) >=500 mg/dL (Negative) 11/22/20 22:03 Urine Ketones Neg mg/dL (Negative) 11/22/20 22:03 Urine Blood Neg (Negative) 11/22/20 22:03 Urine Nitrite Neg (Negative) 11/22/20 22:03 Urine Bilirubin Neg (Negative) 11/22/20 22:03 Urine Urobilinogen < 2.0 mg/dL (<2.0) 11/22/20 22:03 Ur Leukocyte Esterase Neg (Negative) 11/22/20 22:03 Urine WBC (Auto) < 1.0 /HPF (0.0-6.0) 11/22/20 22:03 Urine RBC (Auto) 1.0 /HPF (0.0-6.0) 11/22/20 22:03 Urine Bacteria (Auto) 1+ /HPF (Negative) 11/22/20 22:03 Urine Mucus Few /HPF 11/22/20 22:03 Salicylates < 0.3 mg/dL (2.8-20.0) L 11/22/20 20:34 Urine Opiates Screen Negative 11/22/20 22:03 Urine Methadone Screen Negative 11/22/20 22:03 Acetaminophen 5.0 ug/mL (10.0-30.0) L 11/22/20 20:34 Ur Barbiturates Screen Negative 11/22/20 22:03 Ur Phencyclidine Scrn Negative 11/22/20 22:03 Ur Amphetamines Screen Negative 11/22/20 22:03 U Benzodiazepines Scrn Negative 11/22/20 22:03 Urine Cocaine Screen Negative 11/22/20 22:03 U Marijuana (THC) Screen Negative 11/22/20 22:03 Drugs of Abuse Note Disclamer 11/22/20 22:03 Plasma/Serum Alcohol < 0.01 % (0-0.07) 11/22/20 20:34 Blood Type O POSITIVE 11/22/20 20:34 Antibody Screen Negative 11/22/20 20:34 [place]/IV: Voiding Method Urinal Active Medications - Current Medications Current Medications: Generic Name Dose Route Start Last Admin Trade Name Freq PRN Reason Stop Dose Admin Acetaminophen 650 mg 11/22/20 23:14 Acetaminophen 325 Mg Tab PO Q6H PRN Pain, Mild (1-3) Aspirin 325 mg 11/23/20 10:00 Aspirin Ec 325 Mg Tab PO QDAY [facility] Atorvastatin Calcium 40 mg 11/23/20 22:00 Atorvastatin 40 Mg Tab PO QHS [facility] Dextrose 0 ml 11/22/20 23:15 Dextrose 50% In Water (25gm) 50 Ml Syringe IV Q30MIN PRN Hypoglycemia Protocol Heparin Sodium (Porcine) 5,000 unit 11/23/20 06:00 11/23/20 07:21 Heparin 5,000 Unit/1 Ml Vial SUB-Q Not Given Q8HR [facility] Hydralazine HCl 10 mg 11/22/20 23:17 Hydralazine 20 Mg/1 Ml Inj IV Q6H PRN htn Sodium Chloride 1,000 mls @ 100 mls/hr 11/22/20 23:15 11/23/20 02:45 Nacl 0.9% 1000 Ml IV 100 mls/hr [facility] Administration Ceftriaxone Sodium 2 gm in 100 mls @ 200 mls/hr 11/22/20 23:45 11/23/20 02:55 Rocephin/Ns 2 Gm/100 Ml IV 200 mls/hr Q24HR [facility] Administration Protocol Insulin Human Lispro 0 unit 11/23/20 07:30 Insulin Lispro 100 Unit/Ml SUB-Q ACHS [facility] Protocol Lorazepam 0.5 mg 11/23/20 22:00 Lorazepam 0.5 Mg Tab PO QHS [facility] Pantoprazole Sodium 40 mg 11/23/20 10:00 Pantoprazole 40 Mg Tab PO QDAY [facility] Sodium Chloride 10 ml 11/22/20 23:14 Sodium Chloride 0.9% 10 Ml Flush Syringe IV PRN PRN LINE FLUSH Tramadol HCl 50 mg 11/22/20 23:14 Tramadol 50 Mg Tab PO Q6H PRN Pain, Moderate (4-6)
[2020-11-23] MEDS: INSULIN LISPRO 100 UNIT/ML SUB-Q SCH ×4 (08:40→21:30)
[2020-11-23] MEDS ORDERED: ASPIRIN EC 325 MG TAB PO SCH (10:00)
[2020-11-23] MEDS ORDERED: PANTOPRAZOLE 40 MG TAB PO SCH (10:00)
[2020-11-23] MEDS: PANTOPRAZOLE 40 MG TAB PO SCH (10:24)
--- NOTE | 2020-11-23 19:31 | Vascular Lab Report ---
DUPLEX DOPPLER ULTRASOUND CAROTID, BILATERAL INDICATION / CLINICAL INFORMATION: syncope. COMPARISON: None available. FINDINGS: RIGHT CAROTID: - PLAQUE ESTIMATE (%): < 50% - CCA velocity: 84 cm/sec. - ICA peak systolic velocity: 71 cm/sec. - ICA/CCA PSV Ratio: 0.85 Right Vertebral Artery: Antegrade flow. LEFT CAROTID: Moderate plaque is seen in left carotid bulb - PLAQUE ESTIMATE: < 50% - CCA velocity: 74 cm/sec. - ICA peak systolic velocity: 75 cm/sec. - ICA/CCA PSV Ratio: 1.0 Left Vertebral Artery: Antegrade flow. IMPRESSION: 1. Right Internal Carotid Artery: Less than 50% diameter stenosis. 2. Left Internal Carotid Artery: Less than 50% diameter stenosis. Velocity criteria are extrapolated from diameter data as defined by the Society of Radiologists in Ul trasound Consensus Conference, Radiology 2003; 229;340-346. NO STENOSIS (NORMAL) * Plaque = none; ICA PSV < 125 cm/sec; ICA/CCA PSV Ratio < 2.0 <50% STENOSIS * Plaque < 50%; ICA PSV < 125 cm/sec; ICA/CCA PSV Ratio < 2.0 50-69% STENOSIS * Plaque > 50%; ICA PSV = 125-230 cm/sec; ICA/CCA PSV Ratio = 2.0-4.0 >70% BUT <100% STENOSIS * Plaque > 50%; ICA PSV > 230 cm/sec; ICA/CCA PSV Ratio > 4.0 NEAR OCCLUSION * Plaque = visible lumen; ICA PSV = high/low/none; ICA/CCA PSV Ratio = variable TOTAL OCCLUSION * Plaque = no lumen; ICA PSV = none; ICA/CCA PSV Ratio = N/A Signer Name: Bryson Saeed MD Signed: 11/23/2020 7:27 PM Workstation Name: [id number]
[2020-11-23] MEDS ORDERED: LORazepam 0.5 MG TAB PO SCH (22:00)
[2020-11-24 03:30] VITALS: BP 129/66
[2020-11-24] MEDS: HEPARIN 5,000 UNIT/1 ML VIAL SUB-Q SCH (05:16)
[2020-11-24 05:37] LABS: BUN/Creatinine Ratio 13; Blood Urea Nitrogen 12 mg/dL (9-20); Calcium 7.4 mg/dL (8.4-10.2); Hemolysis Index 10
--- NOTE | 2020-11-24 08:43 | Discharge Summary ---
Providers - Providers Date of Admission: 11/22/20 22:55 Date of discharge: 11/24/20 Attending physician: MARY HERRON MD 11/22/20 23:15 Consult to Dietitian/Nutrition [CONS] Routine Physician Instructions: Reason For Exam: Reason for Consult: Diet education 11/23/20 08:02 Occupational Therapy Evaluate and Treat [CONS] Routine Comment: Reason For Exam: Syncope Physical Therapy Evaluation and Treat [CONS] Routine Comment: Reason For Exam: Evaluate and treat Primary care physician: SECURITY PROJECT MANAGER Hospitalization Reason for admission: Syncope, new onset diabetes mellitus Condition: Good Hospital course: History of present illness: 65-year-old black male was brought to the emergency room from [facility] because of an episode of syncope. Patient is blind and hard of hearing. He denies headache, neck pain, chest pain, abdominal pain, shortness of breath. He is very hard of hearing, and has poor eyesight, patient is a poor historian In the emergency room patient is found to have syncope. Patient blood glucose is 335 lactic acid 4.0 TSH 6.350 Hospital course Patient was admitted to the floor and echo and carotid Doppler was done and unremarkable. Lactic acid trended down to normal. TSH was high but free T4 was normal. Need outpatient follow-up. Patient has elevated blood sugar level and A1c was done and 13.1. I put the patient on Lantus and sliding scale insulin at the time of discharge. I discussed with [facility] physician and he said he is going to switch to insulin 70/30. And was evaluated by PT OT and no need. Patient does not have any syncope or dizziness and patient discharged back to [facility] in stable condition. Patient's questions and concerns were addressed at the bedside. Disposition: DC-01 TO HOME OR SELFCARE Final Discharge Diagnosis (Prints w/discharge instructions): Syncope, autonomic imbalance. Diabetes mellitus, uncontrolled Time spent for discharge: 25 minutes - Discharge Diagnoses (1) Diabetes Status: Acute Qualifiers: Diabetes mellitus type: type 2 Diabetes mellitus [facility] insulin use: without [facility] use Diabetes mellitus complication status: without complication Qualified Code(s): E11.9 - Type 2 diabetes mellitus without complications (2) History of syncope Status: Acute (3) Hyperglycemia Status: Acute (4) Hypothyroidism Status: Acute (5) Lactic acidosis Status: Acute (6) Syncope Status: Acute (7) GERD (gastroesophageal reflux disease) Status: Acute Core Measure Documentation - Palliative Care Palliative Care/ Comfort Measures: Not Applicable - Core Measures Any of the following diagnoses?: none Exam - Physical Exam Narrative exam: Not in cardiopulmonary distress. The patient appeared well nourished and normally developed. Vital signs as documented. Head exam is unremarkable. No scleral icterus . Neck is without jugular venous distension, thyromegaly, or carotid bruits. Lungs are clear to auscultation. Cardiac exam reveals regular rate and Rhythm. Abdominal exam reveals normal bowel sounds, nontender, no organomegaly. Extremities are nonedematous and both femoral and pedal pulses are normal. 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 No focal weakness. - Constitutional Vitals: Temp Pulse Resp BP Pulse Ox 98.3 F 66 17 129/66 96 11/24/20 03:24 11/24/20 03:24 11/24/20 03:24 11/24/20 03:24 11/24/20 03:24 Plan Activity: no restrictions Weight Bearing Status: Full Weight Bearing Diet: diabetic Follow up with: PRIMARY CARE, [Primary Care Provider] - 3-5 Days Prescriptions: Insulin Glargine [Lantus VIAL] 10 unit SUB-Q QHS #1 vial Diabetic Supplies,Miscell [Cequr Simplicity Chair Installer] 1 each MC BID #1 miscell Lispro Insulin [HumaLOG] 0 unit SUB-Q ACHS #1 vial
[2020-11-24] MEDS: INSULIN LISPRO 100 UNIT/ML SUB-Q SCH (09:39)
[2020-11-24] MEDS: PANTOPRAZOLE 40 MG TAB PO SCH (09:40)
[2020-11-24] MEDS: cefTRIAXone/NS 2 GM/100 ML 2 GM/100 ML BAG IV SCH (09:46)
--- NOTE | 2020-11-24 11:22 | Electrocardiograph Report ---
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
--- NOTE | 2020-11-24 11:26 | Electrocardiograph Report ---
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
--- NOTE | 2020-11-24 11:27 | Electrocardiograph Report ---
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
== END 2020-11-24 11:58 | disposition home or self-care (01) ==
LOC: EEVIPCON 20:05 → ED 20:05 → 4A 22:55
PROVIDERS: ADMIT Hospitalist; ATTEND Internal Medicine
DX: R55 Syncope and collapse (principal); E11.40 Type 2 diabetes mellitus with diabetic neuropathy, unspecified; E11.65 Type 2 diabetes mellitus with hyperglycemia; E03.9 Hypothyroidism, unspecified; R94.31 Abnormal electrocardiogram [ECG] [EKG]; E87.2 Acidosis; K21.9 Gastro-esophageal reflux disease without esophagitis; Z87.898 Personal history of other specified conditions; Z79.4 Long term (current) use of insulin; Z79.82 Long term (current) use of aspirin; Z79.899 Other long term (current) drug therapy
CPT/HCPCS: 36415; 70450; 71045; 72125; 80048; 80053; 80061; 80307; 81001; 82140; 82550; 82553; 82962; 83036; 83735; 84439; 84443; 84484; 85025; 85379; 85610; 86850; 86900; 86901; 93005; 93306; 93880; 96361; 96365; 96366; 96372; 96375; 97162; 99285; G0378; J0696; J1644; J7030; J7040; 80320; G0480; J1815